=== PATIENT | female | born 1970 | race Caucasian/White ===

== ENCOUNTER 2022-02-12 13:15 | Outpatient (CLI) | payer BC, SELFPAY ==
--- NOTE | 2022-02-12 13:40 | CRLHL7_ITS ---
For Patients: As a result of the Century Cures Act, medical imaging exams and procedure reports are released immediately into your electronic medical record. You may view this report before your referring provider. If you have questions, please contact your health care provider. BILATERAL MAMMOGRAM WITH COMPUTER-AIDED DETECTION AND TOMOSYNTHESIS TECHNIQUE: CC and MLO views were obtained. These mammographic images have been obtained using full-field digital technique. These mammographic images were interpreted with the benefit of computer-aided detection. Breast Tomosynthesis was used in this interpretation. COMPARISON FILM: 01/23/2020, 08/10/2017, 10/29/2009. FINDINGS: There are scattered areas of fibroglandular density IMPRESSION: There is no radiographic evidence for malignancy. ASSESSMENT: BI-RADS Category 1: Negative RECOMMENDATION: Routine screening mammogram in 1 year. A lay language report of this examination will be provided to the patient. Anastasia Delvalle M.D. Diagnostic Radiologist [email or web address] STACI/quin Transcribed: 1:15 p.m. CONNOR/Dictated by: Anastasia Delvalle MD @ 02/13/2022 10:42:00 AM (Electronically Signed)
== END 2022-02-12 13:16 | disposition home or self-care (01) ==
LOC: MAMMO 13:17
PROVIDERS: PCP Family Medicine; Visit Provider Family Medicine
DX: Z12.31 Encounter for screening mammogram for malignant neoplasm of breast (principal); R92.8 Other abnormal and inconclusive findings on diagnostic imaging of breast
CPT/HCPCS: 77063; 77067

== ENCOUNTER 2023-02-03 10:56 | Outpatient (CLI) | payer BC, SELFPAY | END 2023-02-03 10:57 | disposition home or self-care (01) | PROVIDERS: PCP Family Medicine; Visit Provider Family Medicine | DX: Z01.818 Encounter for other preprocedural examination (principal); R10.9 Unspecified abdominal pain; G89.29 Other chronic pain | CPT/HCPCS: 80048; 80076; 85025 ==

== ENCOUNTER 2023-03-05 10:36 | Outpatient (CLI) | payer BC, SELFPAY ==
--- NOTE | 2023-03-05 06:48 | W.ANESCHARGE ---
Anesthesia Charges Start Date/Time Anesthesia Start Date: 03/05/23 Stop Date/Time Anesthesia Stop Date: 03/05/23
--- NOTE | 2023-03-05 10:56 | W.ANESCHARGE ---
Anesthesia Charges Start Date/Time Anesthesia Start Date: 03/05/23 Anesthesia Start Time: 11:07 Stop Date/Time Anesthesia Stop Date: 03/05/23 Anesthesia Stop Time: 11:49
--- NOTE | 2023-03-05 11:56 | W.ANESCHARGE ---
Anesthesia Charges Start Date/Time Anesthesia Start Date: 03/05/23 Anesthesia Start Time: 11:07 Stop Date/Time Anesthesia Stop Date: 03/05/23 Anesthesia Stop Time: 11:49
== END 2023-03-05 10:37 | disposition home or self-care (01) ==
LOC: OP CLINIC 10:36
PROVIDERS: PCP Family Medicine; Visit Provider Internal Medicine
DX: Z12.11 Encounter for screening for malignant neoplasm of colon (principal); K63.5 Polyp of colon; K62.1 Rectal polyp; K64.8 Other hemorrhoids; K57.30 Diverticulosis of large intestine without perforation or abscess without bleeding; R10.9 Unspecified abdominal pain; R19.8 Other specified symptoms and signs involving the digestive system and abdomen
CPT/HCPCS: 00813; 43239; 45380; 88305; J2704